=== PATIENT | male | born 1970 | race Caucasian/White ===

== ENCOUNTER 2022-12-02 19:05 | Emergency (ER) | payer BC, SELFPAY ==
--- NOTE | 2022-12-02 19:12 | ED.DENTAL ---
HPI - Dental/Oral General Time Seen by Provider: 19:12 Date Seen: 12/02/22 Chief complaint: Dental/Oral/Mouth Injury/Pain Stated complaint: Swallowed Dental Implant Time Seen by Provider: 12/02/22 19:12 Source: patient, RN notes reviewed and old records reviewed Mode of arrival: ambulatory Limitations: no limitations History of Present Illness HPI Narrative: Enoc is a very pleasant 52-year-old gentleman who thinks that he may have swallowed a temporary bridge and spacer when he was eating this evening. Patient notes that he has had a temporary bridge on the right lower jaw with a spacer. It was not meant to be permanent. He does not remember swallowing it but he does note that it is now missing and he is positive that it was in this morning. He notes no difficulty breathing including wheezing. He does note that perhaps he has some mild abdominal pain. He spoke to a triage nurse who said that it might cause him problems if it had sharp edges and encouraged him to come to the emergency room. He has had no fever chills diarrhea. Related Data Home Medications Medication Instructions Recorded Confirmed cholestyramine (with sugar) 4 gram ea 12/02/22 powder for susp in a packet Exam Narrative: Exam Narrative: Alert and oriented. Nontoxic in appearance. Lung exam without any wheezing stridor. Lung sounds are clear throughout. Abdomen is obese soft nontender. Const: Vital Signs, click to edit/add: Vital Signs - 24 hr 12/02/22 19:13 Temperature 97.8 F Pulse Rate [Pulse Oximeter] 90 Blood Pressure [Ri ght Upper Arm] 153/95 H Pulse Oximetry 98 Oxygen Delivery Me thod Room Air Documenting provider has reviewed patient's vital signs: yes Course Course Hospital Course: Will obtain chest and abdomen one views. Vital Signs Vital signs: Initial Vital Signs Temperature 97.8 F 12/02/22 19:13 Temperature Source Oral 12/02/22 19:13 Pulse Rate 90 12/02/22 19:13 Pulse Rhythm 12/02/22 19:13 Blood Pressure 153/95 H 12/02/22 19:13 Blood Pressure Mean 114 12/02/22 19:13 Pulse Oximetry 98 12/02/22 19:13 Oxygen Delivery Method 12/02/22 19:13 Vital Signs Temperature 97.8 F 12/02/22 19:13 Pulse Rate 90 12/02/22 19:13 Blood Pressure 153/95 H 12/02/22 19:13 Pulse Oximetry 98 12/02/22 19:13 Oxygen Delivery Method 12/02/22 19:13 Temperature 97.8 F 12/02/22 19:13 Pulse Rate 90 12/02/22 19:13 Blood Pressure 153/95 H 12/02/22 19:13 Pulse Oximetry 98 12/02/22 19:13 Oxygen Delivery Method 12/02/22 19:13 MDM - Dental/Oral MDM Narrative Medical decision making narrative: 1. Swallowed foreign body-it appears that the bridge is in the GI tract. Patient has no abnormal vital signs or and exam suspicious of any sort of perforation. Most likely this will pass without incident. Have asked patient to monitor his stools. Patient should return if he notices a sudden increase abdominal pain, vomiting, fever, blood in his stool. 2. Disposition -home at this time. Imaging Data Chest x-ray: Attestation: I have reviewed the pertinent imaging results. My impression: No foreign body noted Radiologist's impression: No foreign body Abdominal x-ray: Attestation: I have reviewed the pertinent imaging results. My impression: Noted are clips in the right upper quadrant. There is 1 linear area distal to this that I suspect is foreign body. Radiologist's impression: bdomen 1 view, 4 films Comparison: None Findings/Impression: No dilated loops of large or small intestine. Large amount of stool within the colon. Multiple surgical clips are present in the right upper quadrant. In the right upper quadrant there is a linear density near the right 11th rib measuring 10 x 2 millimeters which could represent a slightly deformed right upper quadrant clip versus an enteric foreign body. Discharge Plan Discharge Clinical Impression: Foreign body ingestion Patient Disposition: Home, Self-Care Condition: Unchanged Additional Instructions: Monitor stool as this will likely move through your bowels. Return to the emergency room for fever, abdominal pain, blood in stool. Prescriptions: No Action cholestyramine (with sugar) 4 gram powder in packet Label Comments: TAKE 1 PACKET BY MOUTH 2 TIMES DAILY. Follow Up/Referrals: Provider,Not a Local [Primary Care Provider] - Stand Alone [facility]
[2022-12-02 19:13] VITALS: BP 153/95; PULSE 90; TEMP 36.6; O2SAT 98; BMI 39.3
--- NOTE | 2022-12-02 19:25 | CRLHL7_ITS ---
For Patients: As a result of the Century Cures Act, medical imaging exams and procedure reports are released immediately into your electronic medical record. You may view this report before your referring provider. If you have questions, please contact your health care provider. Indication: Swallowed dental implant Technique: Abdomen 1 view, 4 films Comparison: None Findings/Impression: No dilated loops of large or small intestine. Large amount of stool within the colon. Multiple surgical clips are present in the right upper quadrant. In the right upper quadrant there is a linear density near the right 11th rib measuring 10 x 2 millimeters which could represent a slightly deformed right upper quadrant clip versus an enteric foreign body. Dictated by Vinicius Solis MD @ 12/02/2022 8:02:01 PM (Electronically Signed)
--- NOTE | 2022-12-02 19:25 | CRLHL7_ITS ---
For Patients: As a result of the Century Cures Act, medical imaging exams and procedure reports are released immediately into your electronic medical record. You may view this report before your referring provider. If you have questions, please contact your health care provider. Indication: Swallowed dental implant Technique: Chest 1 view Comparison: Chest x-ray 01/09/2020 Findings/Impression: Cardiovascular and mediastinum: Normal heart size with aortic tortuosity. Lungs and pleural space: Lungs are clear. No sign of infiltrate or mass. No sign of pleural effusion. No pneumothorax. Bones and soft tissues: No radiopaque foreign body seen. Dictated by Vinicius Solis MD @ 12/02/2022 7:58:02 PM (Electronically Signed)
== END 2022-12-02 20:20 | disposition home or self-care (01) ==
PROVIDERS: Emergency Provider Family Medicine
DX: T18.2XXA Foreign body in stomach, initial encounter (principal)
CPT/HCPCS: 71045; 74018; 99283

== ENCOUNTER 2024-03-09 06:29 | Emergency (ER) | payer BC, SELFPAY ==
[2024-03-09 06:33] VITALS: PULSE 80; RESP 18; TEMP 36.1; O2SAT 97; BMI 35.3
[2024-03-09 06:38] VITALS: BP 196/101
--- NOTE | 2024-03-09 06:46 | CT_ITS ---
Patient: MYLES PICKETT Facility:?[facility] Patient ID:?[id number] Site Patient ID:?[id number] Site :?[id number] Study:?CT-Head W/O-03/09/2024 7:04:01 AM Ordering Physician:SINCERE Final Report: INDICATION: Headache. TECHNIQUE: CT head without contrast. COMPARISON: None. FINDINGS: CSF spaces: Within normal limits for age. Brain parenchyma and extra-axial spaces: The eagle-white differentiation is normal. No sign of mass, hemorrhage, or midline shift. No extra-axial fluid collection. Skull base and calvarium: Near-complete opacification of the maxillary and ethmoid sinuses bilaterally. Opacities also present in the frontal and sphenoid sinuses. The visualized orbits are grossly unremarkable. No skull fractures. IMPRESSION: No intracranial abnormality. Severe pansinus inflammatory disease. Please note that all CT scans at this facility use dose modulation, iterative reconstruction, and/or weight-based dosing when appropriate to reduce radiation dose to as low as reasonably achievable. Dictated by Ricci Callahan MD @ 03/09/2024 7:10:58 AM Signed by:?Ricci Callahan MD @03/09/2024 7:10:58 AM (Electronic Signature)
[2024-03-09 06:58] LABS: Basophils Absolute Auto 0.01 K/uL (0.00-0.30); Basophils Percent Auto 0.1 % (0.0-3.0); Eosinophils Absolute Auto 0.27 K/uL (0.00-0.50); Eosinophils Percent Auto 3.8 % (0.0-7.0); Hematocrit 43.9 % (37.0-53.0); Hemoglobin* 14.3 gm/dL (13.5-17.5); Immature Granulocytes Abs Auto 0.02 K/uL (0.00-0.30); Immature Granulocytes Pct Auto 0.3 %; Lymphocytes Absolute Auto 2.25 K/uL (0.90-2.90); Lymphocytes Percent Auto 31.3 % (20-44); Mean Corpuscular HGB Conc 33 gm/dL (32-36); Mean Corpuscular Hemoglobin 28 pg (26-34); Mean Corpuscular Volume 86 fL (80-100); Neutrophils Absolute Auto 3.93 K/uL (1.7-7.0); Neutrophils Percent Auto 54.5 % (42.0-72.0); Platelet Count* 209 K/uL (140-440); RDW Coefficient of Variation % 12.8 % (11.5-15.5)
[2024-03-09 07:00] LABS: Slide Review Reflex No
--- NOTE | 2024-03-09 07:01 | ED.HA ---
HPI - Headache General Chief Complaint: Headache/Migraine Stated Complaint: severe headache,vomiting Time Seen by Provider: 03/09/24 06:46 History of Present Illness HPI Narrative: Patient is a 53-year-old gentleman with no history of headaches woke up at 5:00 a.m. this morning with a worse headache of his life in over the frontal aspect of his skull. He has had no fevers no chills no night sweats no double vision or neurologic symptoms. The the headache is 8/10 and sharp. There is no radiculopathy. He feels worse when he lays flat and better when he stands up. He has had no recent injuries or trauma. No signs of infection such as fever or nasal congestion. Patient has otherwise been in his usual state of health. Related Data Home Medications Medication Instructions Recorded Confirmed cholestyramine (with sugar) 4 gram ea 12/02/22 powder for susp in a packet Allergies Allergy/AdvReac Type Severity Reaction Status Date / Time No Known Drug Allergies Allergy Verified 03/09/24 06:36 Review of Systems Status of ROS: Reports: 10 or more systems reviewed and unremarkable except as noted in History and below [facility] Social History Smoking Status: Never smoker Do you use any of these nicotine containing products: None Second hand tobacco smoke exposure: No How often do you have a drink containing alcohol: monthly or less AUDIT-C Alcohol total score: 1 Non-prescribed substance use: denies use service: No Exam Narrative: Exam Narrative: EXAM GENERAL: Patient appears to be a comfortable holding his head. EYES: No scleral icterus. ENT: Tympanic membranes and oropharynx normal. THYROID: no thyroid nodules or thyromegaly. LYMPH: No supraclavicular or cervical lymphadenopathy. SKIN: Visible skin seen during exam normal or with benign process only. EXT: No dependent lower extremity pedal edema. HEART: Regular rate and rhythm with no murmurs, rubs, or gallops. LUNGS: Clear to auscultation bilaterally with no crackles or wheezes. ABD: Soft, non tender, non distended. PSYCH: Good eye contact, speech is not pressured. Neurologic cranial nerves 2-12 grossly intact no focal defects. Const: Vital Signs, click to edit/add: Vital Signs - 24 hr 03/09/24 06:33 03/09/24 06:38 03/09/24 07:27 Temperature 97.0 F L Pulse Rate [Pulse Oximeter] 80 46 L Respiratory Rate 18 14 Blood Pressure [Ri ght Upper Arm] 196/101 H 160/82 H Pulse Oximetry 97 95 Oxygen Delivery Me thod Room Air Room Air Course Course ED Course: Patient seen and examined. CBC basic metabolic panel CT of the head ordered. Patient will be given 1 L of normal saline 4 mg of Zofran 25 mg of IV Benadryl and 30 mg of IV Toradol. Vital Signs Vital signs: Initial Vital Signs Temperature 97.0 F L 03/09/24 06:33 Temperature Source Temporal Artery Scan 03/09/24 06:33 Pulse Rate 80 03/09/24 06:33 Pulse Rhythm Regular 03/09/24 06:33 Respiratory Rate 18 03/09/24 06:33 Pulse Oximetry 97 03/09/24 06:33 Oxygen Delivery Method Room Air 03/09/24 06:33 Vital Signs Temperature 97.0 F L 03/09/24 06:33 Pulse Rate 80 03/09/24 06:33 Respiratory Rate 18 03/09/24 06:33 Pulse Oximetry 97 03/09/24 06:33 Oxygen Delivery Method Room Air 03/09/24 06:33 Temperature 97.0 F L 03/09/24 06:33 Pulse Rate 46 L 03/09/24 07:27 Respiratory Rate 14 03/09/24 07:27 Blood Pressure 160/82 H 03/09/24 07:27 Pulse Oximetry 95 03/09/24 07:27 Oxygen Delivery Method Room Air 03/09/24 07:27 Medications Administered Medications: Discontinued Medications Generic Name Dose Route Start Last Admin Trade Name Freq PRN Reason Stop Dose Admin Diphenhydramine HCl 25 mg 03/09/24 06:46 03/09/24 07:07 Diphenhydramine 50 Mg/Ml Inj IVP 03/09/24 06:47 25 mg ONCE ONE Administration Sodium Chloride 1,000 mls @ 1,000 mls/hr 03/09/24 06:47 03/09/24 07:07 0.9 % Sodium Chloride 1000 Ml IV 03/09/24 07:46 1,000 mls/hr .Q1H NESTOR Administration Ketorolac Tromethamine 30 mg 03/09/24 06:46 05/11/24 07:07 Ketorolac 30 Mg/Ml Inj IVP 03/09/24 06:47 30 mg ONCE ONE Administration Ondansetron HCl 4 mg 03/09/24 06:46 03/09/24 07:07 Ondansetron 2 Mg/Ml Inj IVP 03/09/24 06:47 4 mg ONCE ONE Administration MDM - Headache MDM Narrative Medical decision making narrative: Patient is a 53-year-old gentleman comes in today with a terrible headache. He has not really headache patient. I did do CT of his head and it is negative for acute abnormalities. He did was noted to be bradycardic but a EKG shows sinus bradycardia only. Electrolytes are unremarkable as is CBC has a given L of normal saline 4 mg of Zofran 30 mg of Toradol and 25 mg of Benadryl and he is now feeling fine. This time he is offered reassurance and asked follow-up with his doctor next week. Differential diagnosis includes but not limited to tension headache migraine headache cluster headache subdural hematoma skull fracture. Lab Data Labs: Lab Results 03/09/24 Range/Units 06:50 WBC 7.20 (4.50-11.00) K/uL RBC 5.10 (4.30-5.90) m/uL Hgb 14.3 (13.5-17.5) gm/dL Hct 43.9 (37.0-53.0) % MCV 86 (80-100) fL MCH 28 (26-34) pg MCHC 33 (32-36) gm/dL RDW Coeff of Christopher 12.8 (11.5-15.5) % Plt Count 209 (140-440) K/uL Neut % (Auto) 54.5 (42.0-72.0) % Lymph % (Auto) 31.3 (20-44) % [place] % (Auto) 10.0 (0.0-11.0) % Eos % (Auto) 3.8 (0.0-7.0) % Baso % (Auto) 0.1 (0.0-3.0) % Neut # (Auto) 3.93 (1.7-7.0) K/uL Lymph # (Auto) 2.25 (0.90-2.90) K/uL [place] # (Auto) 0.70 (0.00-0.90) K/UL Eos # (Auto) 0.27 (0.00-0.50) K/uL Baso # (Auto) 0.01 (0.00-0.30) K/uL Abs Immat Gran (auto) 0.02 (0.00-0.30) K/uL Imm/Tot Granulo (auto) 0.3 % Sodium 139 (135-149) mmol/L Potassium 3.9 (3.6-5.1) mmol/L Chloride 109 (96-114) mmol/L Carbon Dioxide 27 (20-32) mmol/L Anion Gap 3 L (7-15) mEq/L BUN 16 (7-30) mg/dL Creatinine 0.8 (0.5-1.5) mg/dL Estimated Creat Clear 121.30 Estimated GFR 105 ml/min Glucose 158 H (60-115) mg/dL Calcium 8.8 (8.4-10.6) mg/dL Discharge Plan Discharge Clinical Impression: Headache Patient Disposition: Home, Self-Care Condition: Stable Instructions: Acute Headache (ED) Additional Instructions: Continue current medications Rest Tylenol Motrin Activity Level: No Restrictions Discharge Diet: Regular Prescriptions: No Action cholestyramine (with sugar) 4 gram powder in packet Patient Comments: TAKE 1 PACKET BY MOUTH 2 TIMES DAILY. Follow Up/Referrals: Provider,Not a Local [Referring] - Stand Alone Forms: [facility] Info Instructions
[2024-03-09] MEDS: diphenhydrAMINE 50 MG/ML inj 25 MG IVP (07:07)
[2024-03-09] MEDS: KETOROLAC 30 MG/ML inj IVP (07:07)
[2024-03-09] MEDS: 0.9 % SODIUM CHLORIDE 1000 ml 1,000 ML IV (07:07)
[2024-03-09] MEDS: ONDANSETRON 2 MG/ML inj 4 MG IVP (07:07)
--- OUTSIDE RECORDS SUMMARY | 2024-03-09 07:12 | XMS_ITS | Clinical Summary ---
Author Name Unknown Organization [facility] Address [place], [place] [address] Care Team Providers Care Spinning Machine Tender Name Role Phone Elisha Kent DO Primary Care Provider [phone] Allergies No known active allergies Medications Medication Sig Dispensed Refills Start Date End Date Status multivitamin (MVI) tablet Take 1 tablet by mouth once daily. 0 05/28/2013 Active losartan (COZAAR) 50 mg tabletIndications:Car diomegaly,HTN (hypertension) Take 1 Tablet (50 mg) by mouth once daily. 90 Tablet 3 01/23/2024 Active Active Problems Problem Noted Date Diagnosed Date Chronic diarrhea 06/04/2020 Morbid obesity with BMI of 45.0-49.9, adult 08/0 03/2020 Prediabetes 06/04/2020 Colon polyp 06/01/2018 Overview: Colonoscopy 05/2018 polyp, repeat in 5 years Colonoscopy 12/2022 TA, repeat in 5 years Seasonal allergies 05/28/2013 Encounters Date Type Department Care Team Description 03/06/2024 4:00 PM CDT Office Visit [facility] [address] [place] [address] Srinivas Leiva MD Consult (Diarrhea continues x years, abdominal pain after eating-then diarrhea, eating 1 meal daily, anti-diarrheal causes no bowel movements for days) 03/06/2024 Travel 01/26/2024 Telephone [facility] [address] [place] [address] Elisha Kent, Other (referral needed) 01/23/2024 10:10 AM CDT Office Visit [facility] [address] [place] [address] Elisha Kent Alisa, DO Medication Management (Review/renew medications); Diarrhea (Chronic diarrhea - has seen GI multiple times) 01/23/2024 Travel 01/11/2024 Refill [facility] [address] [place] [address] Elisha Kent Alisa, DO Refill Request (Losartan) from Last 3 Months Immunizations Name Administration Dates Next Due AMB Influenza, IIV3 (Age >=3 years)(Flu Clinic Only) 08/11/2011 AMB Influenza, IIV4 PF (=>6 mos Flulaval,Fluzone Fluarix)(Flu Clinic Only) 08/16/2018,08/27/2016,08/02/2014 COVID-19 vaccine (HELM Boots 30mcg/0.3mL) PF, MDV 12/08/2020,11/17/2020 Hepatitis B, Unspecified 03/30/1999,09/02/1998,1 Influenza, IIV4 08/13/2015 Influenza, IIV4 (=>6mos) MDV 07/16/2020,08/06/20 19 Tdap 06/10/2015 Zoster (Shingrix-RZV, recombinant) 04/20/2021, Family History Medical History Relation Name Comments Other Brother 1 Alyssa Chronic indiges tion Heart Disease Father irregular hear t beat Hyperlipidemia Father Hypertension Father Unknown Maternal Grandfather Unknown Maternal Grandmother Cancer-colon Maternal Uncle 1 Cancer-colon Maternal Uncle 2 Cancer-colon Mother Hypertension Mother Stroke Paternal Grandfather Unknown Paternal Grandmother Hypothyroidism Sister Savita Cancer-prostate No Family History Diabetes No Family History Heart attack No Family History Relation Name Status Comments Brother 1 Alyssa Alive Brother 2 Luke Alive Father Alive Maternal Grandfather Maternal Grandmother Maternal Uncle 1 Maternal Uncle 2 Mother Alive Paternal Grandfather Paternal Grandmother Sister Savita Alive Social History Tobacco Use Types Packs/Day Years Used Date Smoking Tobacco: Never Smokeless Tobacco: Never Tobacco Cessation:Counseling Given: Yes Alcohol Use Standard Drinks/Week Comments Yes 0 (1 standard drink = 0.6 oz pur e alcohol) PHQ-2 Answer Date Recorded PHQ-2 TOTAL SCORE 0 01/23/2024 Social Connections Answer Date Recorded Frequency of Communication with Friends and Fami ly Not on file 01/24/2024 Alcohol Use Answer Date Recorded How often do you have a drink containing alcohol ? 2 01/23/2023 How many drinks containing a lcohol do you have on a typical day when you are drinking? 0 01/23/2023 How often do you have five or more drinks on one occasion? 0 01/23/2023 Financial Resource Strain Answer Date R ecorded Difficulty of Paying Living Expenses 3 01/23/2023 Difficulty of Paying Living Expenses Not on file 01/23/2023 Food Insecurity Answer Date Recorded Worried About Running Out of Food in the Last Ye ar 1 01/23/2023 Transportation Needs Answer Date Record ed Lack of Transportation (Medical) 1 01/23/2023 Housing Stability Answer Date Recorded Unable to Pay for Housing in the Last Year 1 01/23/2023 Sex and Gender Information Value Date Recorded Sex Assigned at Not on file Gender Identity Not on file Sexual Orientation Not on file Obstetrics History Last Filed Vital Signs Vital Sign Reading Time Taken Comments Blood Pressure 131/73 03/06/2024 4:06 PM CDT Pulse 51 03/06/2024 4:06 PM CDT Temperature 37 ??C (98.6 ??F) 01/31/2022 3:53 PM CDT Respiratory Rate 14 01/26/2023 10:4 0 AM CDT Oxygen Saturation 97% 03/06/2024 4:06 PM CDT Inhaled Oxygen Concentration - - Weight 121.4 kg (267 lb 9.6 oz) 03/06/2024 4:06 PM CDT Height 186.7 cm (6' 1.5) 01/23/2023 9:04 AM CDT Body Mass Index 34.83 01/23/2023 9:04 AM CDT Plan of Treatment Upcoming Encounters Date Type Department Care Team (Late st Contact Info) Description 04/01/2024 8:00 AM CDT Ancillary Procedure [facility] [address] [place] [address] Health Maintenance Due Date Last Done Comments COVID-19 vaccine series ( season) 2023 08/18/2022, 10/12/2021, 12/08/2020, Additional history exists BMI (ht and wt on same day) for age 18+ 01/24/2024 01/23/2023, 06/10/2021, 06/04/2020, Additional history exists Influenza for age 50-64 06/30/2024 07/16/20 20, 08/06/2019, 08/16/2018, Additional history exists Depression screening for age 12+ 01/25/2025 01/26/2024, 01/23/2024, 01/26/2023, Additional history exists Tetanus booster 06/10/2025 06/10/2015 Colonoscopy through age 75 01/27/202801/26, 01/26/2023, 01/26/2023, Additional history exists Lipids for age 45-75 01/22/2029 01/23/2024, 01/23/2023, 06/10/2021, Additional history exists Tdap Completed 06/10/2015 Zoster (shingles) series for age 50+ Completed 04/20/2021, 01/15/2021 HIV for age 15-65 Completed 01/23/2023 Hepatitis C screening for age 18-79 Completed 01/23/2023 Pneumococcal series for age 6-64 Aged Out No longer eligible based on patient's age to complete this topic Procedures Procedure Name Priority Date/Time Associated Diagnosis Comments PSA TOTAL SCREEN Routine 01/23/2024 10:4 3 AM CDT Prostate cancer screening LIPID PANEL W REFLEX MEASURED LDL Routine 01/23/2024 10:43 AM CDT Screening cholesterol level BASIC METABOLIC PANEL Routine 01/23/2024 10:43 AM CDT Encounter for medication monitoring COLONOSCOPY DIAGNOSTIC ALEXIS 01/26/2023 9:18 AM CDT Screen for colon cancer LC HIV-1/O/2, 4TH GENERATION Routine 01/23/2023 10:12 AM CDT Screening for HIV (human immunodeficiency virus) LC HCV ANTIBODY RFX TO QUANT PCR Routine 01/23/2023 10:12 AM CDT Need for hepatitis C screening test from Last 3 Months or Most Recently Relevant to Health Maintenance Results * LIPID PANEL W REFLEX MEASURED LDL (01/23/2024 10:43 AM CDT) CHOLESTEROL,TOTAL 166 100 - 199 mg/dL 01/23/2024 4:00 PM CDT [facility] Comment: Cholesterol, Total Reference Ranges Desirable <200 mg/dL Borderline 200-239 mg/dL High >=240 mg/dL TRIGLYCERIDES 92 <150 mg/dL 01/23/2024 4:00 PM CDT [facility] HDL CHOLESTEROL 43 >40 mg/dL 4:00 PM CDT [facility] NON-HDL CHOLESTEROL 123 <145 mg/dl 01/23/2024 4:00 PM CDT [facility] CHOL/HDL RATIO 3.86 <4.50 01/23/2024 4:00 PM CDT [facility] LDL CHOLESTEROL 105 <=130 mg/dL 01/23/2024 4:00 PM CDT [facility] VLDL CHOLESTEROL 18 <=30 mg/dL 01/23/2024 4:00 PM CDT [facility] PROVIDER ORDERED STATUS RANDOM 01/23/2024 4:00 PM T [facility] Blood BLOOD SPECIMEN / Unknown Venipuncture / Unknown 01/23/2024 10:43 AM CDT 01/23/2024 10:45 AM CDT Elisha Kent DO CHEMISTRY [facility] [address] [place] [address], * (ABNORMAL) BASIC METABOLIC PANEL (01/23/2024 10:43 AM CDT) SODIUM 143 136 - 145 mmol/L 01/23/2024 4:00 PM CDT [facility] POTASSIUM 4.3 3.5 - 5.1 mmol/L 01/23/2024 4:00 PM CDT [facility] CHLORIDE 110(H) 98 - 107 mmol/L 01/23/2024 4:00 PM T [facility] CO2,TOTAL 26 22 - 29 mmol/L 01/23/2024 4:00 PM T [facility] ANION GAP 7 5 - 18 01/23/2024 4:00 PM T [facility] GLUCOSE 98 70 - 99 mg/dL 01/23/2024 4:00 PM T [facility] CALCIUM 8.6 8.6 - 10.0 mg/dL 01/23/2024 4:00 PM T [facility] BUN 12 6 - 20 mg/dL 01/23/2024 4:00 PM T [facility] CREATININE 0.93 0.70 - 1.20 mg/dL 01/23/2024 4:00 PM [facility] BUN/CREAT RATIO 13 10 - 20 4:00 PM [facility] eGFR >90 >90 mL/min/1.7 3m2 01/23/2024 4:00 PM T [facility] Comment:As of 2022, eG FR is calculated by the CKD-EPI creatinine equation without race adjustment. ??eGFR can be influenced by muscle mass, exercise, and diet. ??The reported eGFR is an estimation only and is only applicable if the renal function is stable. Blood BLOOD SPECIMEN / Unknown Venipuncture / Unknown 01/23/2024 10:43 AM CDT 01/23/2024 10:45 AM CDT Elisha Kent DO [facility] [address] [place] [address], * PSA TOTAL SCREEN (01/23/2024 10:43 AM CDT) PSA TOTAL (SCREEN) 1.53 <4.00 ng/mL 01/23/2024 4:00 PM T [facility] Blood BLOOD SPECIMEN / Unknown Venipuncture / Unknown 01/23/2024 10:43 AM CDT 01/23/2024 10:45 AM CDT Narrative [facility] - 01/23/2024 4:00 PM CDT The test method changed on 04/25/2023. If this test has been used for serial monitoring, rebaselining is recommended. Rebaselining consists of 2 measurements, collected 3-6 weeks apart. The [employer] Elecsys total PSA assay is an electrochemiluminescence immunoassay ECLIA performed on the [employer] [place] e immunoassay analyzers. Values obtained with different assay methods may be different and cannot be used interchangeably. Elisha Alisa Yoli LABORATORY [facility] [address] [place] [address], [place] * COLONOSCOPY (01/26/2023 8:49 AM CDT) 01/26/2023 8:49 AM CDT Narrative Transcriptions Srinivas Leiva MD - 01/26/2023 10:26 AM CDT Patient Name: Enoc Rodgersleonardo Procedure Date: 01/26/2023 Gender: Male Date of : 1970 Admit Type: Outpatient Procedure: Colonoscopy Proceduralist: Srinivas Leiva MD , Tami King (Nurse), Cathleen Bee RN (Nurse) Referring MD: Elisha Kent Indications/Pre-Op Diagnosis: Screening in patient at increased risk: Colorectal cancer in mother before age 60, Incidental diarrhea noted Medications: Fentanyl 100 micrograms IV, Midazolam 4 mgIV, The level of sedation administered wasmoderate Procedure Description: The patient had risks, benefits and alternatives explained to andgave informed consent. The patient had a stable cardiopulmonary status and judged an adequate candidate for conscious sedation. The endoscope [id number] was passed through the anus andadvanced to the cecum, identified by appendiceal orifice and ileocecal valve.The colonoscopy was performed without difficulty. The patient toleratedthe procedure well. The quality of the bowel preparation was good. The ileocecal valve, appendiceal orifice, and rectum were photographed. Complications: No immediate complications. Estimated Blood Loss & Specimen: Estimated blood loss: none. Specimen collected - Yes and sent to Laboratory Findings: The perianal and digital rectal examinations were normal. Two sessile polyps were found in the ascending colon. The polyps were1 to 3 mm in size. These polyps were removed with a cold biopsyforceps. Resection and retrieval were complete. Biopsies for histology were taken with a cold forceps from the entire colon for evaluation of microscopic colitis. The exam was otherwise without abnormality on direct and retroflexion views. Impressions/Post-Op Diagnosis: - Two 1 to 3 mm polyps in the ascending colon, removed with a cold biopsy forceps. Resected and retrieved. - The examination was otherwise normal on direct and retroflexionviews. - Biopsies were taken with a cold forceps from the entire colon for evaluation of microscopic colitis. Recommendation: - Patient has a contact number available for emergencies. The signsand symptoms of potential delayed complications were discussed with the patient. Return to normal activities tomorrow. Written discharge instructions were provided to the patient. - Resume previous diet. - Continue present medications. - Await pathology results. - Repeat colonoscopy in 5 years. Moderate Sedation: A time out was performed before the procedure. Moderate (conscious) sedation was administered by the endoscopy nurse and supervised bythe endoscopist. The following parameters were monitored: oxygensaturation, heart rate, blood pressure, EKG, CO2, respiratory rate, adequacy of pulmonary ventilation and reponse to care. Please refer to the patient's medical record flowsheets and nursing notes for moderate sedation details. Total physician intraservice time was 20 minutes. Srinivas Leiva MD 01/26/2023 10:26:03 AM This report has been signed electronically. Note Initiated On: 01/26/2023 8:49 AM Procedure Code(s): --- Professional --- 04148, Colonoscopy, flexible; with biopsy, single or multiple Diagnosis Code(s): --- Professional --- Z80.0, Family history of malignant neoplasmof digestive organs D12.2, Benign neoplasm of ascending colon CPT copyright 2020 [employer]. All rights reserved. The codes documented in this report are preliminary and upon composite worker reviewmay be revised to meet current compliance requirements. Scope In: 10:00:56 AM Scope Withdrawal Time 0 hours 12 minutes 11 seconds Scope Out: 10:19:19 AM Srinivas Leiva MD PROCEDURE ORD * LC HCV ANTIBODY RFX TO QUANT PCR (01/23/2023 10:12 AM CDT) Pathologist [facility] HCV Ab Non Reactive Non Reactive 01/25/2023 1:09 PM CDT [facility] ([facility]) Blood BLOOD SPECIMEN / Unknown Venipuncture / Unknown 01/23/2023 10:12 AM CDT 01/23/2023 10:13 AM CDT Narrative [facility] ([facility]) - 01/25/2023 1:09 PM CDT Performed at: ??[address] ??[id number] Concrete Spreader: Jamie Holm MD, Phone: ??[phone] Elisha Kent DO [facility] ([facility]) [address] [place] [id number], * LC HIV-1/O/2, 4TH GENERATION (01/23/2023 10:12 AM CDT) Pathologist [facility] HIV Scr 4th Gen Non Reactive Non Reactive 01/25/2023 9:10 AM CDT [facility] Comment: HIV Negative HIV-1/HIV-2 antibodies and HIV-1 p24 antigen were NOT detected. There is no laboratory evidence of HIV infection. Blood BLOOD SPECIMEN / Unknown Venipuncture / Unknown 01/23/2023 10:12 AM CDT 01/23/2023 10:13 AM CDT Narrative [facility]) - 01/25/2023 9:10 AM CDT Performed at: ??[address] ??[id number] Concrete Spreader: Jamie Holm MD, Phone: ??[phone] Elisha Kent DO LABORATORY [facility] ([facility]) [address] [place], [place] [address] from Last 3 Months or Most Recently Relevant to Health Maintenance Care Teams Spinning Machine Tender Relationship Specialty Start Date End Date Elisha Kent DO [address] [place] [address] PCP - General Family Practice 01/23/23
[2024-03-09 07:13] LABS: Chloride* 109 mmol/L (96-114)
[2024-03-09 07:14] LABS: Potassium* 3.9 mmol/L (3.6-5.1); Sodium* 139 mmol/L (135-149)
[2024-03-09 07:17] LABS: Anion Gap 3 mEq/L (7-15); Blood Urea Nitrogen* 16 mg/dL (7-30); Carbon Dioxide* 27 mmol/L (20-32); Creatinine* 0.8 mg/dL (0.5-1.5); Estimated Glomerular Filt Rate 105 ml/min; Glucose* 158 mg/dL (60-115)
[2024-03-09 07:18] LABS: Calcium* 8.8 mg/dL (8.4-10.6)
[2024-03-09 07:27] VITALS: BP 160/82; PULSE 46; RESP 14; O2SAT 95
== END 2024-03-09 08:11 | disposition home or self-care (01) ==
PROVIDERS: Emergency Provider Internal Medicine; PCP Family Medicine
DX: R51.9 Headache, unspecified (principal)
CPT/HCPCS: 36415; 70450; 80048; 85025; 93005; 96374; 96375; 99283; 99284; J1200; J1885; J2405; J7030